=== PATIENT | female | born 1945 | race Caucasian/White ===

== ENCOUNTER → 2017-12-14 | Outpatient (CLI) | payer OTHER ==
[~2017-12-14] MED LIST: ACCUNEB SO1.25 MG/1; ADVAIR 100-501 EACH; DOXYCYCLINE 10100 MG PO; FISH OIL 1,2001 EAC4 PO; LOVASTAT40 PO; PREDNISONE 20 M20 MG PO; PROVENTIL HFA6.7 G1 INH; SPIRIVA; VITAMIN D1000 UNI1 PO
== END ==
LOC: CAT 10:31
DX: R91.1 Solitary pulmonary nodule (principal); J43.9 Emphysema, unspecified

== ENCOUNTER → 2018-06-11 | Outpatient (CLI) | payer OTHER | LOC: CAT 06-03 11:32 | DX: I25.10 Atherosclerotic heart disease of native coronary artery without angina pectoris (principal); M47.815 Spondylosis without myelopathy or radiculopathy, thoracolumbar region; J43.9 Emphysema, unspecified; R91.1 Solitary pulmonary nodule; I10 Essential (primary) hypertension; E78.00 Pure hypercholesterolemia, unspecified ==

== ENCOUNTER → 2018-12-09 | Outpatient (CLI) | payer OTHER | LOC: RAD 12:05 | DX: R09.89 Other specified symptoms and signs involving the circulatory and respiratory systems (principal); Z88.2 Allergy status to sulfonamides; Z88.8 Allergy status to other drugs, medicaments and biological substances; Z88.1 Allergy status to other antibiotic agents ==

== ENCOUNTER → 2021-01-03 | Outpatient (CLI) | payer OTHER | LOC: RAD 12:02 | PROVIDERS: ATTEND Internal Medicine | DX: J44.9 Chronic obstructive pulmonary disease, unspecified (principal) ==

== ENCOUNTER 2021-08-25 12:45 | Inpatient (IN) | payer OTHER ==
[~2021-08-25] VITALS: Ht 152.4 cm; Wt 54.4 kg
[2021-08-25 12:48] VITALS: BP 121/78
[2021-08-25 13:18] LABS: HEMATOCRIT 40.2 % (37.0-47.0); HEMOGLOBIN 13.8 gm/dL (12.0-15.0); MCH 34.3 pg (26.0-34.0); MCHC 34.3 g/dL (28.0-37.0); MCV 100.1 fL (80.0-100.0); PLATELET COUNT 258 thou/uL (150-400); RBC 4.01 mil/uL (4.20-5.00); RDW 13.1 % (10.5-14.5); WBC 10.7 thou/uL (4.0-11.0)
[2021-08-25 13:42] LABS: CALCIUM 8.7 mg/dL (8.5-10.1); CREATININE 1.5 mg/dL (0.6-1.0); POTASSIUM 3.1 mmol/L (3.5-5.1)
[2021-08-25 13:51] LABS: ALBUMIN 3.1 g/dL (3.4-5.0); TOTAL BILIRUBIN 1.4 mg/dL (0.2-1.0); TOTAL PROTEIN 6.4 g/dL (6.4-8.2)
[2021-08-25] MEDS ORDERED: LIPITOR20 MG PO (14:45)
[2021-08-25] MEDS ORDERED: HYDROCHLOROTHIA25 M1 PO (14:46)
[2021-08-25] MEDS ORDERED: BREO ELLIPTA 21 EACH INH (14:46)
[2021-08-25 16:06] LABS: MACROCYTES FEW
[2021-08-25 17:09] VITALS: BP 129/78
[2021-08-25 17:42] VITALS: BP 129/78
[2021-08-25 22:51] VITALS: BP 125/64
[2021-08-25 23:25] VITALS: BP 137/73
[2021-08-26 03:42] VITALS: BP 133/87
--- NOTE | 2021-08-26 04:35 | NUR ---
ADMITTED THIS PATIENT FROM THE EMERGENCY AT [facility].PATIENT IS ALERT AND ORIENTED X4.SATURATION IN ROOM AIR IS 89-90%, HOOKED TO NASAL CANNULA AT 3LPM, SATURATION IMPROVED TO 95%.ADMISSION COMPLETED.INFORMED MIDDLEWARE SYSTEMS ARCHITECT OF THIS ADMISSION.TO CONTINOUSLY MONITOR.
[2021-08-26 08:00] VITALS: BP 137/60
[2021-08-26 12:30] VITALS: BP 116/61
[2021-08-26 14:05] LABS: ABSOLUTE NEUTROPHILS 17.3 thou/uL (1.4-8.2); BASOPHILS 0.1 % (0.0-2.0); HEMATOCRIT 36.8 % (37.0-47.0); HEMOGLOBIN 12.6 gm/dL (12.0-15.0); LYMPHOCYTES 1.2 % (24.0-44.0); MCH 34.4 pg (26.0-34.0); MCHC 34.2 g/dL (28.0-37.0); MCV 100.6 fL (80.0-100.0); MONOCYTES 1.2 % (1.0-8.0); PLATELET COUNT 286 thou/uL (150-400); POLYS 97.5 % (36.0-66.0); RBC 3.66 mil/uL (4.20-5.00); RDW 13.1 % (10.5-14.5); WBC 17.7 thou/uL (4.0-11.0)
[2021-08-26 14:24] LABS: ALBUMIN 2.6 g/dL (3.4-5.0); CREATININE 1.1 mg/dL (0.6-1.0); MAGNESIUM 2.2 mg/dL (1.8-2.4); TOTAL BILIRUBIN 0.5 mg/dL (0.2-1.0); TOTAL PROTEIN 7.3 g/dL (6.4-8.2)
[2021-08-26 16:00] VITALS: BP 133/73
[2021-08-26 16:23] LABS: URINE BILIRUBIN NEGATIVE (Negative); URINE BLOOD TRACE (Negative); URINE CLARITY CLEAR; URINE COLOR YELLOW; URINE GLUCOSE-RANDOM* NEGATIVE (Negative); URINE KETONES NEGATIVE (Negative); URINE LEUKOCYTES-REFLEX NEGATIVE (Negative); URINE NITRITE-REFLEX NEGATIVE (Negative); URINE SPECIFIC GRAVITY 1.025 (1.005-1.035); URINE UROBILINOGEN 0.2 E.U./dl (0.2-1.0)
[2021-08-26 16:32] LABS: URINE PROTEIN (DIPSTICK) NEGATIVE (Negative)
--- NOTE | 2021-08-26 16:46 | NUR ---
met with patient who admits with PNA/COPD. Patient resides in [facility] with elevator access. She uses no assistive device. She does not use oxygen at home but currently rec oxygen. She reports she is active, she hikes, water aerobics. PCP at she has not seen. Most medical managed by Rory Phipps her pulmonogist. Therapy evals in process. casemgt following anticipate no weekend dc.
[2021-08-26 19:42] VITALS: BP 124/66
[2021-08-27 00:06] LABS: GLYCOHEMOGLOBIN (HGB A1C) 6.3 % (4.8-5.6)
[2021-08-27 03:29] VITALS: BP 120/61
[2021-08-27 04:52] LABS: HEMOGLOBIN 11.5 gm/dL (12.0-15.0); MCH 34.1 pg (26.0-34.0); MCHC 33.8 g/dL (28.0-37.0); RBC 3.37 mil/uL (4.20-5.00); RDW 12.8 % (10.5-14.5); WBC 14.3 thou/uL (4.0-11.0)
--- NOTE | 2021-08-27 05:05 | NUR ---
PATIENT WAS RESTING IN HER ROOM VISITING WITH HER SON AT BEGINNING OF SHIFT. PATIENT STATES THAT SHE IS DOING WELL TODAY. NOTED THAT PATIENT IS ON 3L NC. SHE IS ABLE TO REACH 1000 ON HER INCENTIVE SPIROMETER. URINATES VIA COMMODE. ALL VITAKS ARE STABLE. NO SIGNIFICANT SKIN ISSUES. INFORMED PATIENT THAT THERE IS AN ORDER FOR A SPUTUUM SAMPLE TO BE COLLECTED. PT STATES THAT SHE HAS BEEN UNABLE TO PRODUCE ANY PRODUCTIVE COUGH TODAY. PATIENT IS AAOX4 AND FOLLOWS ALL COMMANDS AND PROMPTS. SHE DENIES ANY PAIN OR ADDITIONAL NEEDS. SHE IS ABLE TO AMBULATE UNDER HER OWN POWER. WILL CONTINUE TO MONITOR FOR CHANGES IN STATUS.
[2021-08-27 05:50] LABS: CALCIUM 9.1 mg/dL (8.5-10.1); CREATININE 0.8 mg/dL (0.6-1.0); POTASSIUM 3.5 mmol/L (3.5-5.1)
--- NOTE | 2021-08-27 07:03 | EKG ---
[address] [place] [employer] [address] ELECTROCARDIOGRAM REPORT Name: DEISI CELIS Room #: 207- ADM IN M.R.#: [id number] Admission: 08/25/21 Attend Phys: Aiden Vera MD Discharge: Date of : 41 Report #: [id number] [facility] ED Test Date: 2021-08-25 Test Time: 13:00:03 Pat Name: DEISI CELIS Department: Room: 207 Gender: F Stock Buyer: Verónica THOMAS : 1945 Requested By: Brice Collado Order Number: [id number] MD: Victorino Barnard Measurements Intervals [place] Rate: 102 P: 51 VA: 127 QRS: 30 QRSD: 84 T: 39 QT: 323 QTc: 421 Interpretive Statements Sinus tachycardia Biatrial enlargement RSR' in V1 or V2, right VCD or RVH Compared to ECG 06/23/2012 10:22:48 Right ventricular hypertrophy now present RSR' in V1 or V2 now present Sinus rhythm no longer present Electronically Signed On 08-27-2021 7:03:32 CHECKER IN by Victorino Barnard [email or web address] <ELECTRONICALLY SIGNED> By: Victorino Barnard MD, FACC 08/27/21 0703 1300 1300 Victorino Barnard MD, FAC /EPI
--- NOTE | 2021-08-27 07:04 | EKG ---
[address] [address] ELECTROCARDIOGRAM REPORT Name: DEISI CELIS Room #: 207-P ADM IN M.R.#: [id number] Admission: 08/25/21 Attend Phys: Aiden Vera MD Discharge: Date of : 41 Report #: [id number] [facility] Test Date: 2021-08-26 Test Time: 09:35:30 Pat Name: DEISI CELIS Department: Room: 207 Gender: F Insurance Specialist: FSCHWALBE : 1945 Requested By: Mirta Sahu Order Number: [id number] MD: Victorino Barnard Measurements Intervals [place] Rate: 123 P: 47 VA: 130 QRS: 3 QRSD: 92 T: 39 QT: 316 QTc: 452 Interpretive Statements Sinus tachycardia Atrial premature complex LAE, consider biatrial enlargement RSR' in V1 or V2, probably normal variant Compared to ECG 08/25/2021 13:00:03 Atrial premature complex(es) now present Right ventricular hypertrophy no longer present Electronically Signed On 08-27-2021 7:04:09 DATABASE CONSULTANT by Victorino Barnard [email or web address] <ELECTRONICALLY SIGNED> By: Victorino Barnard MD, FACC 08/27/21 0704 Victorino Barnard MD, [facility] /EPI
[2021-08-27 07:47] VITALS: BP 123/59
[2021-08-27 11:10] VITALS: BP 133/59
[2021-08-27 15:33] VITALS: BP 132/58
--- NOTE | 2021-08-27 18:35 | NUR ---
Recieved pt from shift production associate. VS stable, NSR on monitor. Pt was able to walk around unit, shower and sit at beside independently. Pt was at 3L O2 in AM, has been weaned down to 1L and is able to tolerate weaning. Possible discharge Sunday (08/29).No current concerns.
--- NOTE | 2021-08-27 18:38 | NUR ---
Dr. Sahu consulted and spoke with son about medication reconcilitation.
[2021-08-27 20:15] VITALS: BP 136/73
[2021-08-28 04:23] LABS: ABSOLUTE NEUTROPHILS 9.7 thou/uL (1.4-8.2); BASOPHILS 0.1 % (0.0-2.0); HEMATOCRIT 33.9 % (37.0-47.0); HEMOGLOBIN 11.6 gm/dL (12.0-15.0); LYMPHOCYTES 3.8 % (24.0-44.0); MCH 34.8 pg (26.0-34.0); MCHC 34.3 g/dL (28.0-37.0); MCV 101.2 fL (80.0-100.0); MONOCYTES 3.8 % (1.0-8.0); PLATELET COUNT 283 thou/uL (150-400); POLYS 92.3 % (36.0-66.0); RBC 3.35 mil/uL (4.20-5.00); RDW 13.4 % (10.5-14.5); WBC 10.6 thou/uL (4.0-11.0)
[2021-08-28 04:30] LABS: ALBUMIN 2.3 g/dL (3.4-5.0); CALCIUM 9.1 mg/dL (8.5-10.1); CREATININE 0.8 mg/dL (0.6-1.0); MAGNESIUM 2.5 mg/dL (1.8-2.4); PHOSPHORUS 2.4 mg/dL (2.6-4.7); POTASSIUM 3.6 mmol/L (3.5-5.1); TOTAL BILIRUBIN 0.3 mg/dL (0.2-1.0); TOTAL PROTEIN 6.6 g/dL (6.4-8.2)
[2021-08-28 04:45] VITALS: BP 129/69
--- NOTE | 2021-08-28 05:27 | NUR ---
PATIENT RESTING IN HER ROOM AAOX4 VISITING WITH HER SON. PATIENT STATES THAT SHE IS DOING WELL TODAY. SHE IS NOW ON 1L NC AT 97%. SHE CONTINUES TO HAVE A NON PRODUCTIVE COUGH. HER VITALS ARE ALL STABLE. SHE IS COMPLIANT WITH MEDICATION AND TREATMENT. TOLERATED PO NUTRITION. AMBULATES WILL UNDER HER OWN POWER BUT DOES UTILIZE THE WALKER WHEN WALKING AROUNFD THE UNIT. DENIES PAIN AT THIS TIME. WILL CONTINUE TO MONITOR FOR CHANGES IN PATIENT STATUS.
[2021-08-28 07:29] VITALS: BP 120/62
[2021-08-28 11:32] VITALS: BP 131/69
[2021-08-28 15:34] VITALS: BP 122/59
--- NOTE | 2021-08-28 17:52 | NUR ---
Pt has been able to wean off supplemental O2. In the am she was on 1L which she stopped using at 1400. She has been tolerating room air well. She ambulated around the unit with RT and w/o O2 and tolerated it well (O2 sat 89 during ambulation w/o 02). Pt also went down for chest CT. Pt has been eating well but has not had a BM since 08/25/21 and is concerned about this - currently taking docusate. No other concerns voiced at this time.
[2021-08-28 20:15] VITALS: BP 127/71
--- NOTE | 2021-08-29 04:34 | NUR ---
ASSESSMENT DOCUMENTED.PT BEEN RESTING IN NO ACUTE DISTRESS.A/OX4.VSS.ON RA W/O RESP DISTRESS.ANTICIPATING DISCHARGE TODAY.WILL CONT TO MONITOR PER POC.
[2021-08-29 04:45] VITALS: BP 133/73
[2021-08-29 08:00] VITALS: BP 139/81
[2021-08-29] MEDS ORDERED: CEFUROXIME250 MG PO (09:07)
[2021-08-29] MEDS ORDERED: CARDIZEM LA180 M1 PO (09:08)
[2021-08-29] MEDS ORDERED: PREDNISONE 20 M20 MG PO (09:08)
--- NOTE | 2021-08-29 09:17 | NUR ---
PT UP AND FULLY DRESSED, UP AD CARLOS IN ROOM, TOILETING AND TOOK SHOWER YESTERDAY D/C OT PER PT REQUEST. DOING VERY WELL. POSSIBLE HOME TOMORROW
[2021-08-29 11:28] VITALS: BP 139/81
--- NOTE | 2021-08-29 12:32 | NUR ---
ASSESSMENT CHARTED - MEDS PER NICKI GORDON DIET AND FLUIDS. NO CO'S OF PAIN OR NAUSEA. UP AD CARLOS IN ROOM. PT HOME THIS AM - INSTRUCTION RE HOME MEDS/ CARE AND FOLLOW UP GIVEN TO PATIENT. STATED UNDERSTANDING OF INSTRUCTION GIVEN. LEFT UNIT VIA WHEELCHAIR - HOME VIA PVT VHEICLE ACCOMPANIED BY SON. NO CO'S AT TIME OF D/C.
== END 2021-08-29 12:15 | disposition home or self-care (01) | DRG 193 ==
LOC: ER 12:45 → 2N 14:22 → EROBS 14:22 → 2N 23:02
PROVIDERS: Emergency Medicine; Internal Medicine; Nurse Practitioner Family; ADMIT Internal Medicine; ATTEND Internal Medicine
DX: J18.9 Pneumonia, unspecified organism (principal); J96.01 Acute respiratory failure with hypoxia; R65.11 Systemic inflammatory response syndrome (SIRS) of non-infectious origin with acute organ dysfunction; J44.1 Chronic obstructive pulmonary disease with (acute) exacerbation; N17.9 Acute kidney failure, unspecified; J44.0 Chronic obstructive pulmonary disease with (acute) lower respiratory infection; E87.1 Hypo-osmolality and hyponatremia; D64.9 Anemia, unspecified; Z66 Do not resuscitate; R91.1 Solitary pulmonary nodule; E87.6 Hypokalemia; K21.9 Gastro-esophageal reflux disease without esophagitis; I10 Essential (primary) hypertension; E78.00 Pure hypercholesterolemia, unspecified; Z20.822 Contact with and (suspected) exposure to COVID-19; Z79.899 Other long term (current) drug therapy; Z88.2 Allergy status to sulfonamides; Z88.1 Allergy status to other antibiotic agents
CPT/HCPCS: 10081

== ENCOUNTER → 2021-09-05 | Outpatient (CLI) | payer OTHER ==
[~2021-09-05] MED LIST changes: +BREO ELLIPTA 21 EACH INH; +CARDIZEM LA180 M1 PO; +CEFUROXIME250 MG PO; +HYDROCHLOROTHIA25 M1 PO; +LIPITOR20 MG PO
== END ==
LOC: RAD 10:00
PROVIDERS: ATTEND Internal Medicine
DX: R91.8 Other nonspecific abnormal finding of lung field (principal)